=== PATIENT | female | born 1975 | race Caucasian/White ===

== ENCOUNTER → 2016-09-25 | Outpatient (CLI) | payer BC ==
[~2016-09-25] MED LIST: ASPI325T39 PO; CHOL100010 PO; CLB/200 PO; CYCL5TAB PO; HYDR-5688 PO; RXC5 PO
== END | disposition home or self-care (01) ==
LOC: C.PAPS 16:44
PROVIDERS: ATTEND Obstetrics & Gynecology
DX: Z01.419 Encounter for gynecological examination (general) (routine) without abnormal findings (principal)

== ENCOUNTER → 2016-12-28 | Outpatient (CLI) | payer BC ==
--- NOTE | 2016-12-28 15:53 | MAMMOGRAPHY REPORT ---
BILATERAL DIGITAL SCREENING MAMMOGRAM TOMOSYNTHESIS WITH CAD: 12/28/2016 CLINICAL HISTORY: Routine screening. Patient has no complaints. TECHNIQUE: Breast tomosynthesis in addition to standard 2D mammography was performed. Current study was also evaluated with a Computer Aided Detection (CAD) system. COMPARISON: Comparison is made to exam dated: 11/11/2015 mammogram - [facility]. BREAST COMPOSITION: The tissue of both breasts is extremely dense, which lowers the sensitivity of mammography. FINDINGS: No suspicious masses, calcifications, or areas of architectural distortion are noted in e ither breast. There has been no significant interval change compared to prior exams. IMPRESSION: ACR BI-RADS CATEGORY 1: NEGATIVE There is no mammographic evidence of malignancy. A 1 year screening mammogram is recommended. The p atient will receive written notification of the results. Approximately 10% of breast cancers are not detected with mammography. A negative mammographic repor t should not delay biopsy if a clinically suggestive mass is present. Marielos Mckinney M.D. ah/:12/28/2016 14:01:05 Regrinder Operator: Adrienne Walker, [facility] letter sent: Normal 1/2 BI-RADS Code: ACR BI-RADS Category 1: Negative
== END | disposition home or self-care (01) ==
LOC: C.MAMM 11:00
PROVIDERS: ATTEND Family Medicine
DX: Z12.31 Encounter for screening mammogram for malignant neoplasm of breast (principal)

== ENCOUNTER → 2017-10-22 | Outpatient (CLI) | payer OTHER ==
[2017-10-22 17:59] LABS: BASO % 0.2 %; BASO ABS # 0.02 K/uL (0-0.2); EOS % 0.9 %; EOS ABS # 0.08 K/uL (0-0.5); HEMATOCRIT 41.4 % (37-47); HEMOGLOBIN 13.8 g/dL (12.0-16.0); IG# 0.02 K/uL (0.00-0.02); LYMPH % 15.3 %; LYMPH ABS # 1.34 K/uL (1.2-3.4); MEAN CELL VOLUME 89.2 fL (80-100); MEAN CORPUSCULAR HEMOGLOBIN 29.7 pg (25-34); MEAN CORPUSCULAR HGB CONC 33.3 g/dl (32-36); MEAN PLATELET VOLUME 10.8 fL (7.4-10.4); MONO % 6.1 %; MONO ABS # 0.53 K/uL (0.11-0.59); NEUT % 77.3 %; NEUT ABS # 6.75 K/uL (1.4-6.5); PLATELET COUNT 264 K/uL (130-400); RED CELL DISTRIBUTION WIDTH CV 11.7 % (11.5-14.5); RED CELL DISTRIBUTION WIDTH SD 37.7 fL (36.4-46.3); WHITE BLOOD COUNT 8.74 K/uL (4.8-10.8)
[2017-10-22 18:29] LABS: ALBUMIN 3.6 gm/dl (3.4-5.0); ALT/SGPT 20 U/L (12-78); AST/SGOT 9 U/L (15-37); BLOOD UREA NITROGEN 12 mg/dl (7-18); CALCIUM 9.2 mg/dl (8.5-10.1); CARBON DIOXIDE 27 mmol/L (21-32); CREATININE 0.73 mg/dl (0.60-1.20); GLUCOSE 133 mg/dl (70-99); POTASSIUM 3.6 mmol/L (3.5-5.1); SODIUM 137 mmol/L (136-145)
[2017-10-22 18:37] LABS: ALKALINE PHOSPHATASE 66 U/L (45-117); TOTAL PROTEIN 8.1 gm/dl (6.4-8.2)
[2017-10-24 14:01] LABS: MICROSOMAL AB <1 IU/ML (<9)
== END | disposition home or self-care (01) ==
LOC: C.LAB 17:29
PROVIDERS: ATTEND Family Medicine
DX: E06.9 Thyroiditis, unspecified (principal)

== ENCOUNTER → 2017-10-26 | Outpatient (CLI) | payer OTHER ==
--- NOTE | 2017-10-26 11:08 | DIAGNOSTIC IMAGING REPORT ---
THYROID ULTRASOUND CLINICAL HISTORY: Thyroiditis. COMPARISON STUDY: TECHNIQUE: Sonography of the thyroid gland was performed. FINDINGS: The right thyroid lobe measures 6.5 x 1.9 x 2 cm and the left lobe measures 5.2 x 1.6 x 1.7 cm. The gland is heterogeneous. Gland heterogeneity is difficult to differentiate from nodules. Note is made of a 1.2 x 0.8 x 1.1 cm echogenic left lobe nodule. There are a few additional small thyroid nodules. A few prominent central compartment lymph nodes are noted. IMPRESSION: 1. Moderately enlarged, heterogeneous thyroid gland consistent with thyroiditis. Discrete nodules are difficult to differentiate from heterogeneous thyroid parenchyma. Hypoechoic regions within each thyroid lobe likely reflect thyroid parenchyma. Multiple small thyroid nodules do not meet criteria for biopsy at this time. A follow-up thyroid ultrasound in 6 months is recommended to ensure stability. 2. Prominent central compartment lymph nodes which are often seen in the setting of thyroiditis. Electronically signed by: Ryan Sena M.D. 10/26/2017 11:06 AM Dictated Date/Time: 10/26/2017 10:02 AM
== END | disposition home or self-care (01) ==
LOC: C.ULTR 09:17
PROVIDERS: ATTEND Family Medicine
DX: E06.9 Thyroiditis, unspecified (principal)

== ENCOUNTER → 2018-03-11 | Outpatient (CLI) | payer OTHER ==
[2018-03-11 18:16] LABS: BASO % 0.3 %; BASO ABS # 0.02 K/uL (0-0.2); EOS % 1.5 %; EOS ABS # 0.09 K/uL (0-0.5); HEMATOCRIT 39.8 % (37-47); HEMOGLOBIN 13.2 g/dL (12.0-16.0); IG# 0.01 K/uL (0.00-0.02); LYMPH % 32.7 %; LYMPH ABS # 1.94 K/uL (1.2-3.4); MEAN CELL VOLUME 91.5 fL (80-100); MEAN CORPUSCULAR HEMOGLOBIN 30.3 pg (25-34); MEAN CORPUSCULAR HGB CONC 33.2 g/dl (32-36); MEAN PLATELET VOLUME 11.6 fL (7.4-10.4); MONO % 6.9 %; MONO ABS # 0.41 K/uL (0.11-0.59); NEUT % 58.4 %; NEUT ABS # 3.46 K/uL (1.4-6.5); PLATELET COUNT 205 K/uL (130-400); RED CELL DISTRIBUTION WIDTH CV 12.6 % (11.5-14.5); RED CELL DISTRIBUTION WIDTH SD 42.4 fL (36.4-46.3); WHITE BLOOD COUNT 5.93 K/uL (4.8-10.8)
== END | disposition home or self-care (01) ==
LOC: C.LAB 16:35
PROVIDERS: ATTEND Family Medicine
DX: R53.83 Other fatigue (principal)